=== PATIENT | male | born 1935 | race Caucasian/White ===

== ENCOUNTER → 2019-05-26 | Outpatient (CLI) | payer MEDICARE ==
--- NOTE | 2019-05-26 16:23 | US ---
EXAMINATION TYPE: US venous doppler duplex LE DATE OF EXAM: 05/26/2019 1:38 PM COMPARISON: US dated 02/04/2013 CLINICAL HISTORY: I71.9 AORTIC ANEURYSM,I87.2 VENOUS INSUFF. History of previous DVT, on blood thinne rs, for insufficiency SIDE PERFORMED: Bilateral LOWER EXTREMITY VENOUS INSUFFICIENCY 1) Color flow is present and patency is documented in the following vessels. No SVT is noted. 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 Venous reflux as described within the left common femoral vein, deep femoral vein and fem oral vein
== END | disposition home or self-care (01) ==
LOC: RADUSWWP 12:50
PROVIDERS: ATTEND Internal Medicine Interventional Cardiology
DX: I87.2 Venous insufficiency (chronic) (peripheral) (principal)
CPT/HCPCS: 93970